=== PATIENT | female | born 1975 | race Caucasian/White ===

== ENCOUNTER → 2017-01-18 | Outpatient (CLI) | payer OTHER ==
--- NOTE | 2017-01-24 07:30 | MM ---
Reason for exam: screening (asymptomatic). Last mammogram was performed 1 year and 7 months ago. History: Family history of breast cancer in maternal grandmother. Taking hormonal contraceptives for 19 years beginning at age 15. Physical Findings: A clinical breast exam by your physician is recommended on an annual basis and results should be correlated with mammographic findings. MG 3D Screening Mammo W/Cad Bilateral CC and MLO view(s) were taken. Prior study comparison: June 08, 2015, bilateral MG 3d screening mammo w/cad. May 27, 2014, bilateral MG screening mammo w CAD. The breast tissue is heterogeneously dense. This may lower the sensitivity of mammography. New grouped calcifications posterior upper outer quadrant right breast. ASSESSMENT: Incomplete: need additional imaging evaluation, BI-RAD 0 RECOMMENDATION: Special view mammogram of the right breast. [facility] will attempt to contact patient to return for supplemental views.
== END | disposition home or self-care (01) ==
LOC: RADMAMWWP 15:38
PROVIDERS: ATTEND Internal Medicine
DX: Z12.31 Encounter for screening mammogram for malignant neoplasm of breast (principal)
CPT/HCPCS: 77063; G0202

== ENCOUNTER → 2017-02-01 | Outpatient (CLI) | payer OTHER ==
--- NOTE | 2017-02-01 10:31 | MM ---
Reason for exam: additional evaluation requested from abnormal screening. Last mammogram was performed less than 1 month ago. History: Family history of breast cancer in maternal grandmother. Taking hormonal contraceptives for 19 years beginning at age 15. Physical Findings: Nurse did not find any significant physical abnormalities on exam. MG Work Up Mamm w CAD RT CC and MLO view(s) were taken of the right breast. Prior study comparison: January 18, 2017, bilateral MG 3d screening mammo w/cad. June 08, 2015, bilateral MG 3d screening mammo w/cad. The breast tissue is heterogeneously dense. This may lower the sensitivity of mammography. There are new regional calcifications in upper outer quadrant of the right breast at middle depth spanning 2.7cm from nipple. Biopsy recommended of the most suspicious group measuring 3.5mm as these are heterogeneous and indeterminate. Recommendations for the remaining calcifications will be made on rad-path correlation. These results were verbally communicated with the patient and result sheet given to the patient on 02/01/17. ASSESSMENT: Suspicious, BI-RAD 4 RECOMMENDATION: Stereotactic core biopsy of the right breast. Called Dr. Aguilar with mammographic findings and has scheduled an appointment for the patient for 02/08/17 at 9:[address] Burdick. PRELIMINARY REPORT CALLED AND FAXED TO DR. BURDICK ON 02/01/17.
== END | disposition home or self-care (01) ==
LOC: RADMAMWWP 08:43
PROVIDERS: ATTEND Internal Medicine
DX: R92.8 Other abnormal and inconclusive findings on diagnostic imaging of breast (principal)

== ENCOUNTER → 2021-07-12 | Outpatient (CLI) | payer OTHER ==
--- NOTE | 2021-07-12 17:51 | US ---
EXAMINATION TYPE: US venous doppler duplex LE LT DATE OF EXAM: 07/12/2021 5:10 PM COMPARISON: NONE CLINICAL HISTORY: R25.2 LEG CRAMPING. Left calf cramping SIDE PERFORMED: Left TECHNIQUE: The lower extremity deep venous system is examined utilizing real time linear array sonog amara with graded compression, doppler sonography and color-flow sonography. VESSELS IMAGED: Common Femoral Vein Deep Femoral Vein Greater Saphenous Vein * Femoral Vein Popliteal Vein Small Saphenous Vein * Proximal Calf Veins (* superficial vessels) June V PTV Left Leg: Negative for DVT. Grayscale, color doppler, spectral doppler imaging performed of the deep veins of the lower extremiti es. There is normal flow, compressibility, vascular waveforms. IMPRESSION: No evidence of DVT of the left lower extremity.
== END | disposition home or self-care (01) ==
LOC: RADUSWWP 16:44
PROVIDERS: ATTEND Internal Medicine
DX: R25.2 Cramp and spasm (principal)

== ENCOUNTER → 2022-04-14 | Outpatient (CLI) | payer OTHER ==
--- NOTE | 2022-04-15 06:18 | US ---
EXAMINATION TYPE: US pelvic complete DATE OF EXAM: 04/14/2022 COMPARISON: NONE CLINICAL HISTORY: N92.6 IRREGULAR MENSTRUATION. irregular menses hx of breast CA on tomoxin. TECHNIQUE: Transabdominal (TA). Transabdominal sonographic images of the pelvis were acquired. EXAM MEASUREMENTS: Uterus: 9.8 x 4.1 cm Endometrial Stripe: .9 cm Right Ovary: 4.1 x 1.7 x 1.8 cm Left Ovary: 4.4 x 2.9 x 2.5 cm 1. Uterus: Anteverted heterogenous. 2. Endometrium: .9 3. Right Ovary: follicles seen. 4. Left Ovary: follicles seen largest 2.6 x 2.0 x 1.8 cm. 5. Bilateral Adnexa: wnl 6. Posterior cul-de-sac: wnl Heterogeneous anteverted uterus. Endometrial stripe not well seen but Realtime measurement by technol ogist within normal limits. No free fluid. Ovaries symmetric and normal in size with some prominent follicles and/or thin-walled cysts seen bila terally. Largest measures 2.6 cm long axis within the left ovary. IMPRESSION: No suspicious findings are evident.
== END | disposition home or self-care (01) ==
LOC: RADUSWWP 16:14
PROVIDERS: ATTEND Obstetrics & Gynecology
DX: N92.6 Irregular menstruation, unspecified (principal); Z85.3 Personal history of malignant neoplasm of breast
CPT/HCPCS: 76856

== ENCOUNTER → 2023-01-27 | Outpatient (CLI) | payer BC ==
--- NOTE | 2023-01-27 10:50 | US ---
EXAMINATION TYPE: US venous doppler duplex LE BI DATE OF EXAM: 01/27/2023 10:39 AM COMPARISON: 07/12/2021 CLINICAL INDICATION: Female, 47 years old with history of M79.89 OTHER SPECIFIED SOFT TISSUE DISORDER S; right ankle swelling since Monday after car trip from [place] SIDE PERFORMED: Bilateral TECHNIQUE: The lower extremity deep venous system is examined utilizing real time linear array sonog amara with graded compression, doppler sonography and color-flow sonography. VESSELS IMAGED: Common Femoral Vein Deep Femoral Vein Greater Saphenous Vein * Femoral Vein Popliteal Vein Proximal Calf Veins (* superficial vessels) Right Leg: Negative for DVT Left Leg: Negative for DVT stat hold and call, results communicated to Dr. Yuan IMPRESSION: Grayscale, color doppler, spectral doppler imaging performed of the deep veins of the lo wer extremities. There is normal flow, compressibility, vascular waveforms.
== END | disposition home or self-care (01) ==
LOC: RADUSWWP 09:58
PROVIDERS: ATTEND Internal Medicine
DX: M79.89 Other specified soft tissue disorders (principal)
CPT/HCPCS: 93970

== ENCOUNTER → 2024-07-17 | Outpatient (CLI) | payer BC ==
[2024-07-17 15:42] LABS: Testosterone <10.00 ng/dL (7.00-45.62)
[2024-07-17 18:42] LABS: Follicle Stimulating Hormone 7.8 mIU/mL; Luteinizing Hormone 6.3 mIU/mL
== END | disposition home or self-care (01) ==
LOC: LABWHC1 11:37
PROVIDERS: ATTEND Internal Medicine
DX: R61 Generalized hyperhidrosis (principal)
CPT/HCPCS: 36415; 83001; 83002; 84144; 84146; 84403